=== PATIENT | female | born 1995 | race Two or more races ===

== ENCOUNTER 2025-02-23 05:24 | Emergency (ER) | payer MEDICAID, SELFPAY ==
[2025-02-23 05:25] VITALS: BP 111/78; PULSE 110; RESP 18; TEMP 36.6; O2SAT 99; BMI 38.4
--- NOTE | 2025-02-23 05:45 | PD.EDRME ---
Rapid Medical Screening Exam [facility] Arrival date/time: 02/23/25 05:24 29F with history of cholecystectomy presents to ED with several hours of N/V, ab pain/cramping, and non-bloody diarrhea. Chief Complaint: Abdominal Pain Vital signs: Vital Signs Temperature 97.8 F 02/23/25 05:25 Pulse Rate 110 H 02/23/25 05:25 Respiratory Rate 18 02/23/25 05:25 Blood Pressure 111/78 02/23/25 05:25 Pulse Oximetry (%) 99 02/23/25 05:25 Oxygen Delivery Method Room Air 02/23/25 05:25 Exam: No ab tenderness. Clinical Impression: gastroenteritis vs food poisoning vs ab pain vs gastritis
[2025-02-23] MEDS: ONDANSETRON ODT 4 MG TABRAP PO (06:00)
[2025-02-23] MEDS: DICYCLOMINE 10 MG CAPSULE PO (06:00)
[2025-02-23 06:14] LABS: Collection Type, Urine Clean Catch
[2025-02-23 06:16] LABS: Basophils # (Auto) 0.1 Thou/mm3 (0.0-0.2); Basophils % (Auto) 1 % (0-2.5); Eosinophils # (Auto) 0.1 Thou/mm3 (0.0-0.5); Eosinophils % (Auto) 0 % (0-10); Hematocrit 43.1 % (36.0-46.0); Hemoglobin 14.6 g/dL (12.0-16.0); Immature Granulocytes Auto 0.10 Thou/mm3 (0.00-0.00); Lymphocytes # (Auto) 3.5 Thou/mm3 (1.0-4.8); Lymphocytes % (Auto) 14 % (10-50); Mean Corpuscular HGB Conc 33.9 g/dl (31.0-37.0); Mean Corpuscular Hemoglobin 30.0 pg (25.0-35.0); Mean Corpuscular Volume 89 fL (80-100); Monocytes # (Auto) 1.5 Thou/mm3 (0.0-0.8); Monocytes % (Auto) 6 % (0-12); Neutrophils # (Auto) 19.0 Thou/mm3 (1.8-7.7); Neutrophils % (Auto) 78 % (37-80); Nucleated Red Blood Cell # 0.00 Thou/mm3 (0.00-0.00); Nucleated Red Blood Cell % 0 /100 WBC (0); Platelet Count 336 Thou/mm3 (140-440); RDW Standard Deviation 40.4 fL (36.4-46.3); Red Blood Count 4.87 Miln/mm3 (4.00-5.20); White Blood Count 24.2 Thou/mm3 (3.6-11.0)
[2025-02-23 06:24] LABS: Bacteria,Urine Rare; Bilirubin,Urine Negative (Negative); Blood,Urine Negative (Negative); Clarity,Urine Turbid (Clear/Hazy); Color,Urine Yellow (Lt Yel-Yel); Culture Indicated,Urine Contaminated; Glucose, Urine Trace (Negative); Granular Casts,Urine < 1 /hpf (0-1); Hyaline Casts,Urine < 1 /hpf (0-1); Ketones,Urine Negative (Negative); Leukocyte Esterase,Urine Positive (Negative); Nitrite,Urine Negative (Negative); PH,Urine 6.0 (5.0-7.0); Protein,Urine 1+ (Neg - Trace); RBC,Urine 5 /hpf (0-3); Specific Gravity,Urine 1.030 (1.001-1.035); Squamous Epithelial Cell,Urine 12 /hpf (0-5); Urobilinogen,Urine 2.0 mg/dL (0.0-1.0); WBC,Urine 13 /hpf (0-5)
[2025-02-23 06:27] LABS: Amphetamine/Methamp Scrn,U Negative (Negative); Barbiturate Screen,Urine Negative (Negative); Benzodiazepines Screen,Urine Negative (Negative); Benzoylecgonine Screen, Ur Negative (Negative); Fentanyl Screen,Urine Negative (Negative); Opiate Screen,Urine Negative (Negative); THC Screen,Urine Negative (Negative)
[2025-02-23 06:40] LABS: Alanine Aminotransferase 66 U/L (10-49); Albumin, Serum 5.0 gm/dL (3.5-5.0); Albumin/Globulin Ratio 1.3 (1.2-2.2); Alkaline Phosphatase 94 U/L (46-116); Anion Gap 10 (7-16); Aspartate Amino Transferase 76 U/L (0-34); BUN/Creatinine Ratio 18 Ratio (12-20); Bilirubin,Total 0.8 mg/dL (0.3-1.2); Blood Urea Nitrogen 14 mg/dL (9-23); Calcium 9.5 mg/dL (8.3-10.6); Calcium (Corrected) 9.5 mg/dL (8.5-10.1); Carbon Dioxide 27.5 mMol/L (20.0-31.0); Chloride 103 mMol/L (98-107); Creatinine (Component) 0.8 mg/dL (0.6-1.3); Estimated Creatinine Clearance 144.9 mL/min (>60); Globulin 3.8 gm/dL (2.3-3.5); Glucose 110 mg/dL (74-106); Lipase 45 U/L (12-53); Osmolality,Calculated 280 (275-295); Potassium 3.7 mMol/L (3.4-5.1); Sodium 140 mMol/L (136-145); Total Protein 8.8 gm/dL (5.7-8.2); eGFR > 60 See Note
[2025-02-23 06:46] LABS: HCG Qualitative,Urine Negative
--- NOTE | 2025-02-23 07:31 | XR_ITS ---
Examination: Abdomen sonogram, Limited Date and time of exam: February 23, 2025, 0741 hours INDICATIONS: Upper abdominal pain nausea vomiting diarrhea today leukocytosis Technique: Real-time zuniga scale transabdominal sonographic images of the upper abdomen obtained. Findings: Absent gallbladder Common bile duct 0.5 cm Pancreatic head 1.6 cm Liver 22.6 cm fatty infiltration no focal liver lesions Normal hepatopetal portal venous flow Patent IVC IMPRESSION: Absent gallbladder Normal common bile duct Significant hepatomegaly fatty infiltration no focal liver lesions
--- NOTE | 2025-02-23 07:35 | PD.EDADULT ---
ED General RME/HPI General Chief complaint: Abdominal Pain Stated complaint: ABDOMINAL PAIN, N/V/D Time Seen by Provider: 02/23/25 07:18 Arrival date/time: 02/23/25 05:24 RME / HPI RME / HPI narrative: 02/23/25 05:24 29F with history of cholecystectomy presents to ED with several hours of N/V, ab pain/cramping, and non-bloody diarrhea. Exam: No ab tenderness. Impression: gastroenteritis vs food poisoning vs ab pain vs gastritis Related Data Previous Rx's ?Medication ?Instructions ?Recorded docusate sodium 100 mg capsule 100 mg PO BID #40 caps 01/20/23 (Colace) hydrocodone 5 mg-acetaminophen 325 1 tab PO Q6H PRN pain (scale score 01/20/23 mg tablet 7-10) #20 tabs ibuprofen 600 mg tablet 600 mg PO Q8H PRN pain (scale 01/20/23 score 4-6) #15 tabs hyoscyamine sulfate 0.125 mg 0.125 mg PO QID PRN dyspepsia 1 02/23/25 disintegrating tablet week #28 tabs Allergies Allergy/AdvReac Type Severity Reaction Status Date / Time No Known Allergies Allergy Unverified 01/20/23 09:50 ED Exam Narrative Physical exam: Physical Exam: GENERAL: Awake, answer questions appropriately, appears stated age, morbidly obese HEENT: NC/AT. Moist mucosa. PERRLA/EOMI. CARDIO: Heart RRR, no obvious murmurs, no JVD. PULM: No coughing or visible SOB. Lungs CTA B/L. GI: Abdomen soft, mildly tender to palpation epigastric area otherwise nontender in all other quadrants, no rigidity, no guarding. Borborygmi apparent SKIN/MSK/EXT: No wounds/discoloration/rashes/edema/amputations. +Pedal pulses present B/L. NEURO: Oriented x3, Moves extremities x4, no focal neurological deficits noted. Course Quality Measures none Orders Category Date Time Status US liver Stat Exams 02/23/25 07:31 Completed CBC Stat Lab 02/23/25 06:05 Completed CMP [Comprehensive Metabolic Panel] Stat Lab 02/23/25 06:05 Completed Drug Screen,Urine Stat Lab 02/23/25 06:07 Completed HCG Qualitative,Urine Stat Lab 02/23/25 06:07 Completed Lipase Stat Lab 02/23/25 06:05 Completed Urinalysis, C/S if Indicated Stat Lab 02/23/25 06:07 Completed Dicyclomine [Bentyl] Med 02/23/25 05:44 Discontinued 10 mg PO X1 ONE Ondansetron Odt [Zofran Odt] Med 02/23/25 05:43 Discontinued 4 mg PO X1 ONE Vital Signs Vital signs: Vital Signs Temperature 97.8 F 02/23/25 05:25 Pulse Rate 110 H 02/23/25 05:25 Respiratory Rate 18 02/23/25 05:25 Blood Pressure 111/78 02/23/25 05:25 Pulse Oximetry (%) 99 02/23/25 05:25 Oxygen Delivery Method Room Air 02/23/25 05:25 Discharge Plan Plan Patient Disposition: HOME (Self Care) Patient condition on transfer: Stable Prescriptions/Referrals Prescriptions/Med Rec: New hyoscyamine sulfate 0.125 mg tablet,disintegrating 0.125 mg PO QID PRN (Reason: dyspepsia) 7 Days Qty: 28 0RF No Action docusate sodium [Colace] 100 mg capsule 100 mg PO BID Qty: 40 0RF hydrocodone-acetaminophen 5-325 mg tablet 1 tab PO Q6H MDD 4 PRN (Reason: pain (scale score 7-10)) Qty: 20 0RF ibuprofen 600 mg tablet 600 mg PO Q8H PRN (Reason: pain (scale score 4-6)) Qty: 15 0RF Problem List Clinical Impression: IBS (irritable bowel syndrome) Patient/Caregiver Discharge Instructions Education Materials: IBS Diet Lifestyle Additional Instructions: Please take hyoscyamine 0.125 mg tablet up to four times a day of abdominal pain likely due to IBS Please follow-up with your PCP and repeat blood work for elevated white blood cell count You possibly have IBD; ask your PCP to screen for IBD and refer you to a GI specialist if your symptoms persist Print Language: Stateless Stand Alone Forms: Deepa Award Info., Patient Portal Info Letter MDM Narrative MDM hospital course (for use when minimal MDM required): HPI: 29-year-old female with past medical history of cholecystectomy secondary to cholelithiasis, morbid obesity presenting to the ED on 02/23 with abdominal pain which started yesterday evening. Patient states that the pain was sharp and was all throughout her abdomen. Her mother is bedside and corroborated her story adding that the patient has abdominal pain on and off mostly after she eats a meal. Patient denies having any fever/chills, weight loss, melena, hematochezia, hematemesis but does state that she did have 3 episodes of vomiting yesterday night secondary to the abdominal pain. On examination, please refer to the physical exam above; patient presented normotensive 111/78, tachycardic with heart rate of 110, respiratory rate 18, afebrile satting 99 on room air. Pertinent lab findings included leukocytosis with a white blood cell count of 24.2 otherwise unremarkable CBC, CMP was also largely unremarkable other than mild elevation in liver function enzymes AST 76, ALT 66 but T. bili was 0.8 and alk phos was 94. Urinalysis was positive for leukocyte esterase but negative for nitrites with some pyuria and hematuria the sample is contaminated with squamous epithelial cells and there were rare bacteria noted. U tox is negative. Differentials at this time include: IBS, choledocholithiasis, pancreatitis, peptic ulcer disease, gastritis, possibly IBD #Abdominal pain #Leukocytosis As noted above by HPI, laboratory findings imaging Ultrasound liver ordered shows hepatomegaly like 2/2 MASLD no other concerning findings Plan: Will discharge patient if ultrasound is negative with the following instructions Please take hyoscyamine 0.125 mg tablet up to four times a day of abdominal pain likely due to IBS Please follow-up with your PCP and repeat blood work for elevated white blood cell count You possibly have IBD; ask your PCP to screen for IBD and refer you to a GI specialist if your symptoms persist Patient seen and assessed with attending Dr. Kristi Buchanan DO PGY-2 Internal Medicine - [facility] Medication Administration(s) Medication Administration History Discontinued Medications Dicyclomine HCl (Dicyclomine 10 Mg Capsule) 10 mg PO X1 ONE Stop: 02/23/25 05:45 Last Admin: 02/23/25 06:00 Dose: 10 mg Documented By: EITAN Ondansetron HCl (Ondansetron Odt 4 Mg Tabrap) 4 mg PO X1 ONE; Protocol Stop: 02/23/25 05:44 Last Admin: 02/23/25 06:00 Dose: 4 mg Documented By: EITAN
== END 2025-02-23 09:45 | disposition home or self-care (01) ==
LOC: SERX 07:41
PROVIDERS: Physician Assistant; Emergency Provider Family Medicine; PCP Nurse Practitioner Family
DX: K58.0 Irritable bowel syndrome with diarrhea (principal); R10.10 Upper abdominal pain, unspecified
CPT/HCPCS: 36415; 76705; 80053; 80307; 81001; 81025; 83690; 85025; 99283; Q0162; A9270